=== PATIENT | male | born 1965 | race Hispanic/Latino ===

== ENCOUNTER 2018-02-22 21:26 | Emergency (ER) | payer MEDICAID ==
[2018-02-22 21:26] VITALS: BMI 25.2
[2018-02-22 22:24] LABS: BASO % 0.3 % (0.0-2.0); EOS # 0.1 K/uL (0.0-0.7); EOS % 0.6 % (0.0-4.0); HEMOGLOBIN 15.4 g/dL (12.0-18.0); LYMPH # 0.9 K/uL (1.0-4.3); LYMPH % 7.6 % (20.0-40.0); MEAN CELL VOLUME 96.2 fl (80.0-94.0); MEAN CORPUSCULAR HGB CONC 32.3 g/dL (33.0-37.0); MEAN PLATELET VOLUME 8.6 fl (7.2-11.7); MONO # 1.2 K/uL (0.0-0.8); MONO % 9.9 % (0.0-10.0); NEUT # 9.8 K/uL (1.8-7.0); NEUT % 81.6 % (50.0-75.0); PLATELET COUNT 227 K/uL (130-400); RBC 4.98 Mil/uL (4.40-5.90); RED CELL DISTRIBUTION WIDTH 13.9 % (11.5-14.5)
[2018-02-22 22:33] LABS: ALB/GLOB RATIO 1.2 (1.0-2.1); ALT/SGPT 42 U/L (21-72); AST/SGOT 47 U/L (17-59); BLOOD UREA NITROGEN 11 mg/dl (9-20); CALCIUM 8.3 mg/dL (8.4-10.2); GFR NON-AFRICAN AMERICAN > 60
--- NOTE | 2018-02-22 22:33 | ED PDOC ---
HPI: Psych/Substance Abuse Time Seen by Provider: 02/22/18 21:35 Chief Complaint (Nursing): Substance Abuse Chief Complaint (Provider): Substance Abuse ED Caveat: Intoxicated History Per: EMS History/Exam Limitations: intoxication Onset/Duration Of Symptoms: Hrs Current Symptoms Are (Timing): Still Present Modifying Factor(s): Narcotics Additional Complaint(s): Moncho Angelo is a 52 year old male with a past medical history of heroin abuse who was brought to the ED by EMS for evaluation of substance abuse and possible overdose. As per EMS, patient was passed out and unresponsive. Intranasal Narcan was administered on the field with improved mentation. In ED, patient is easily arouseable with slurred speech. Further history was not obtainable due to patient's intoxicated state. PMD: none provided Past Medical History Reviewed: Historical Data, Nursing Documentation, Vital Signs, Unable To Obtain (no new information was obtainable) Vital Signs: Last Vital Signs Temp 97.0 F L 02/22/18 21:28 Pulse 94 H 02/22/18 21:28 Resp 12 02/22/18 21:28 BP 120/78 02/22/18 21:28 Pulse Ox 97 02/22/18 21:28 - Medical History PMH: Arthritis, Hepatitis (C) Denies: CHF, COPD, Diabetes, HIV, HTN, Hypercholesterolemia, Hypothyroidism, Chronic Kidney Disease, Rheumatoid Arthritis, Seizures, Sexually Transmitted Disease - Surgical History Surgical History: No Surg Hx - Family History Family History: States: Unknown Family Hx - Immunization History Hx Tetanus Toxoid Vaccination: No Hx Influenza Vaccination: No Hx Pneumococcal Vaccination: No - Home Medications Home Medications: Ambulatory Orders Medication Instructions Recorded Naloxone HCl [Narcan] 4 mg NS ONCE PRN #1 spray 02/23/18 - Allergies Allergies/Adverse Reactions: Allergies Allergy/AdvReac Type Severity Reaction Status Date / Time No Known Allergies Allergy Verified 02/22/18 21:28 Review of Systems ROS Statement: Except As Marked, All Systems Reviewed And Found Negative Review Of Systems: ROS cannot be obtained secondary to pt's inabilty to answer questions. Physical Exam - Reviewed Nursing Documentation Reviewed: Yes Vital Signs Reviewed: Yes - Physical Exam Appears: Positive for: Non-toxic, No Acute Distress Head Exam: Positive for: ATRAUMATIC, NORMAL INSPECTION, NORMOCEPHALIC Skin: Positive for: Normal Color, Warm, DRY Eye Exam: Positive for: EOMI, Normal appearance, PERRL ENT: Positive for: Normal ENT Inspection Neck: Positive for: Normal, Painless ROM Cardiovascular/Chest: Positive for: Regular Rate, Rhythm. Negative for: Murmur Respiratory: Positive for: Normal Breath Sounds. Negative for: Respiratory Distress Gastrointestinal/Abdominal: Positive for: Normal Exam, Soft. Negative for: Tenderness Back: Positive for: Normal Inspection Extremity: Positive for: Normal ROM. Negative for: Deformity, Swelling Neurologic/Psych: Positive for: Other (slurred speech). Negative for: Motor/ Sensory Deficits - Laboratory Results Result Diagrams: 02/22/18 22:05 02/22/18 22:05 - ECG O2 Sat by Pulse Oximetry: 97 (RA) Pulse Ox Interpretation: Normal Medical Decision Making Medical Decision Making: Time: 22:05 Impression: 52 year old male s/p heroin overdose Plan: --EKG --Acetaminophen --Alcohol Serum --CMP --Drug Screen --Salicylate --CBC --PTT --Coag --Accucheck --Urinalysis 03:51 --Labs reviewed and reveal no clinically significant abnormalities. Patient is awake, alert, oriented x 3 and has fluent speech. Diagnosis is opiate overdose. Will be discharged home. Return precautions provided. Scribe Attestation: Documented by Dian Dumont, acting as a scribe for Chase Reyes MD. Provider Scribe Attestation: All medical record entries made by the Scribe were at my direction and personally dictated by me. I have reviewed the chart and agree that the record accurately reflects my personal performance of the history, physical exam, medical decision making, and the department course for this patient. I have also personally directed, reviewed, and agree with the discharge instructions and disposition Disposition - Clinical Impression Clinical Impression: Opiate overdose - Patient ED Disposition Is Patient to be Admitted: No - Disposition Disposition: Routine/Home Disposition Time: 03:53 Condition: STABLE Additional Instructions: MONCHO ANGELO, thank you for letting us take care of you today. Your provider was Chase Reyes MD and you were treated for POSS OVERDOSE. The emergency medical care you received today was directed at your acute symptoms. If you were prescribed any medication, please fill it and take as directed. It may take several days for your symptoms to resolve. Return to the Emergency Department if your symptoms worsen, do not improve, or if you have any other problems. Please contact your doctor or call one of the physicians/clinics you have been referred to that are listed on the Patient Visit Information form that is included in your discharge packet. Bring any paperwork you were given at discharge with you along with any medications you are taking to your follow up visit. Our treatment cannot replace ongoing medical care by a primary care provider outside of the emergency department. Thank you for allowing the [facility] team to be part of your care today. If you had an X-Ray or CT scan: A Radiologist will review the ED reading if any change in treatment is needed we will contact you. If you had a blood, urine, or wound culture: It will take several days for the results, if any change in treatment is needed we will contact you. If you had an STI test: It will take 48 hours for the results. Please call after 1 week if you have not heard back. Prescriptions: Naloxone HCl [Narcan] 4 mg NS ONCE PRN #1 spray PRN Reason: opiate overdose Instructions: Narcotic Overdose Forms: [employer] (Irish)
[2018-02-22 22:37] LABS: INR 1.1; PROTHROMBIN TIME 11.8 Seconds (9.8-13.1)
[2018-02-22 22:40] LABS: PARTIAL THROMBOPLASTIN TIME 29.1 Seconds (25.6-37.1)
[2018-02-22 22:42] LABS: URINE BACTERIA RARE (<OCC); URINE BILIRUBIN NEGATIVE (NEGATIVE); URINE BLOOD NEGATIVE (NEGATIVE); URINE CLARITY SLIGHTY-CLOUDY (Clear); URINE COLOR YELLOW (YELLOW); URINE GLUCOSE (UA) NEG (Normal); URINE LEUKOCYTE ESTERASE NEG Leu/uL (Negative); URINE PROTEIN 100 mg/dL (NEGATIVE); URINE UROBILINOGEN 0.2-1.0 mg/dL (0.2-1.0)
[2018-02-22 22:59] LABS: EOSINOPHIL 1 % (0-7); LYMPHOCYTE 8 % (20-50); MONOCYTE 9 % (0-10); NEUTROPHIL 82 % (42-75); PLATELET ESTIMATE NORMAL (NORMAL); TOTAL CELLS COUNTED 100
[2018-02-22 23:00] LABS: ANISOCYTOSIS SLIGHT; LARGE PLATELETS PRESENT; OVALOCYTES SLIGHT; TEARDROP CELLS SLIGHT
[2018-02-22 23:02] LABS: BARBITURATES, UR NEGATIVE (NEGATIVE); BENZODIAZEPINES, UR POSITIVE (NEGATIVE); OPIATES, UR POSITIVE (NEGATIVE); PHENCYCLIDINE, UR NEGATIVE (NEGATIVE)
[2018-02-22 23:11] LABS: ACETAMINOPHEN < 10.0 ug/ml (10.0-30.0); SALICYLATE < 1.0 mg/dl
[2018-02-23 03:48] VITALS: BP 137/81; PULSE 102; RESP 16; TEMP 99.9
[2018-02-23 04:59] VITALS: O2SAT 96
--- NOTE | 2018-02-23 08:27 | CARD ---
APPROVED REPORT Date of service: 02/22/2018 <Conclusion> Normal sinus rhythm Normal ECG
== END 2018-02-23 04:59 | disposition home or self-care (01) ==
LOC: H.ER 21:26
DX: T40.1X1A Poisoning by heroin, accidental (unintentional), initial encounter (principal)

== ENCOUNTER 2018-02-24 00:47 | Emergency (ER) | payer MEDICAID ==
[2018-02-24 00:48] VITALS: BMI 25.2
--- NOTE | 2018-02-24 02:06 | ED PDOC ---
HPI: Psych/Substance Abuse Time Seen by Provider: 02/24/18 01:00 Chief Complaint (Nursing): Substance Abuse Chief Complaint (Provider): Substance Abuse ED Caveat: Other (Heroin abuse) History/Exam Limitations: other (heroin abuse) Onset/Duration Of Symptoms: Mins (prior to arrival) Current Symptoms Are (Timing): Still Present Additional Complaint(s): 52 year old male, seen by this provider 24 hours ago for heroin abuse, presents via EMS again for heroin abuse. Patient shows no active respiratory distress, is easily aroused, and admits to also drinking tonight. Due to patient 's drug use, he is a poor historian and thus the ROS is limited. All PMHX is from historical data. PMD: none provided Past Medical History Reviewed: Historical Data, Nursing Documentation, Vital Signs Vital Signs: Last Vital Signs Temp 97.5 F L 02/24/18 00:58 Pulse 64 02/24/18 00:58 Resp 18 02/24/18 00:58 BP 106/61 02/24/18 00:58 Pulse Ox 95 02/24/18 00:58 - Medical History PMH: Arthritis, Hepatitis (C) Denies: CHF, COPD, Diabetes, HIV, HTN, Hypercholesterolemia, Hypothyroidism, Chronic Kidney Disease, Rheumatoid Arthritis, Seizures, Sexually Transmitted Disease - Surgical History Surgical History: No Surg Hx - Family History Family History: States: Unknown Family Hx - Social History Current smoker - smoking cessation education provided: Yes Alcohol: Social Drugs: Other (heroin) - Immunization History Hx Tetanus Toxoid Vaccination: No Hx Influenza Vaccination: No Hx Pneumococcal Vaccination: No - Home Medications Home Medications: Ambulatory Orders Medication Instructions Recorded Naloxone HCl [Narcan] 4 mg NS ONCE PRN #1 spray 02/23/18 Naloxone HCl [Narcan] 4 mg NS ONCE PRN #1 spray 02/24/18 - Allergies Allergies/Adverse Reactions: Allergies Allergy/AdvReac Type Severity Reaction Status Date / Time FISH Allergy RASH Verified 02/24/18 00:58 Review of Systems Review Of Systems: ROS cannot be obtained secondary to pt's inabilty to answer questions. Physical Exam - Reviewed Nursing Documentation Reviewed: Yes Vital Signs Reviewed: Yes - Physical Exam Appears: Positive for: No Acute Distress Head Exam: Positive for: ATRAUMATIC, NORMOCEPHALIC Skin: Positive for: Normal Color, Warm, Dry Eye Exam: Positive for: Normal appearance ENT: Positive for: Normal ENT Inspection Cardiovascular/Chest: Positive for: Regular Rate, Rhythm Respiratory: Positive for: Normal Breath Sounds. Negative for: Accessory Muscle Use, Respiratory Distress Gastrointestinal/Abdominal: Positive for: Normal Exam, Soft. Negative for: Tenderness Back: Positive for: Normal Inspection Extremity: Positive for: Normal ROM Neurologic/Psych: Positive for: Oriented (to person and place), Other ( somnolent but arousable) - Laboratory Results Result Diagrams: 02/24/18 02:45 02/24/18 02:45 - ECG O2 Sat by Pulse Oximetry: 95 (RA) Pulse Ox Interpretation: Normal Medical Decision Making Medical Decision Making: Time: 0117 Initial Impression: 52 year old male under the influence of heroin Initial Plan: --Alcohol serum --CMP --Drug screen --CBC with differential --Accucheck 0602 Pt is clinically sober and stable for d/c with diagnosis of opiate abuse. Scribe Attestation: Documented by Nanci Hanley, acting as a scribe for Chase Reyes MD. Provider Scribe Attestation: All medical record entries made by the Scribe were at my direction and personally dictated by me. I have reviewed the chart and agree that the record accurately reflects my personal performance of the history, physical exam, medical decision making, and the department course for this patient. I have also personally directed, reviewed, and agree with the discharge instructions and disposition. Disposition - Clinical Impression Clinical Impression: Opiate abuse, episodic - Patient ED Disposition Is Patient to be Admitted: No Counseled Patient/Family Regarding: Studies Performed, Diagnosis - Disposition Disposition: Routine/Home Disposition Time: 06:05 Condition: STABLE Prescriptions: Naloxone HCl [Narcan] 4 mg NS ONCE PRN #1 spray PRN Reason: opiate overdose Instructions: Opioid Use Disorder Forms: [employer] (Pashto)
[2018-02-24 03:06] LABS: BASO # 0.1 K/uL (0.0-0.2); BASO % 0.5 % (0.0-2.0); EOS # 0.2 K/uL (0.0-0.7); EOS % 1.8 % (0.0-4.0); HEMOGLOBIN 14.4 g/dL (12.0-18.0); LYMPH # 2.6 K/uL (1.0-4.3); LYMPH % 25.7 % (20.0-40.0); MEAN CELL VOLUME 93.2 fl (80.0-94.0); MEAN CORPUSCULAR HEMOGLOBIN 32.1 pg (27.0-31.0); MEAN CORPUSCULAR HGB CONC 34.4 g/dL (33.0-37.0); MEAN PLATELET VOLUME 8.9 fl (7.2-11.7); MONO % 9.8 % (0.0-10.0); NEUT # 6.4 K/uL (1.8-7.0); NEUT % 62.2 % (50.0-75.0); NRBC % 0.1 % (0.0-0.0); RBC 4.5 Mil/uL (4.40-5.90); RED CELL DISTRIBUTION WIDTH 13.6 % (11.5-14.5); WHITE BLOOD COUNT 10.3 K/uL (4.8-10.8)
[2018-02-24 03:20] LABS: ALB/GLOB RATIO 1.1 (1.0-2.1); ALBUMIN 4.3 g/dL (3.5-5.0); ALT/SGPT 21 U/L (21-72); AST/SGOT 48 U/L (17-59); BLOOD UREA NITROGEN 8 mg/dl (9-20); CALCIUM 8.3 mg/dL (8.4-10.2); GFR NON-AFRICAN AMERICAN > 60
[2018-02-24 06:20] VITALS: BP 112/64; PULSE 62; RESP 16; TEMP 97.1; O2SAT 99
== END 2018-02-24 06:20 | disposition home or self-care (01) ==
LOC: H.ER 00:47
DX: F11.10 Opioid abuse, uncomplicated (principal); F17.200 Nicotine dependence, unspecified, uncomplicated